=== PATIENT | female | born 1995 | race Caucasian/White ===

== ENCOUNTER 2016-12-29 17:07 | Emergency (ER) | payer OTHER, BC ==
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
[2016-12-29 19:44] VITALS: BP 128/78; PULSE 69; RESP 18; TEMP 97.9; O2SAT 96
== END 2016-12-29 19:44 | disposition home or self-care (01) ==
DX: S16.1XXA Strain of muscle, fascia and tendon at neck level, initial encounter (principal); S40.021A Contusion of right upper arm, initial encounter; S70.11XA Contusion of right thigh, initial encounter; V67.6XXA Passenger in heavy transport vehicle injured in collision with fixed or stationary object in traffic accident, initial encounter; Y92.410 Unspecified street and highway as the place of occurrence of the external cause